=== PATIENT | male | born 1950 | race Caucasian/White ===

== ENCOUNTER 2018-09-27 10:37 | Emergency (ER) | payer OTHER ==
[2018-09-27 10:47] VITALS: BP 136/74
[2018-09-27] MEDS ORDERED: Ketorolac INJ* 60 MG/2 ML VIAL IM ONE (12:31)
--- NOTE | 2018-09-27 12:38 | UC ---
UC General HPI - HPI Summary HPI Summary: WOKE UP THIS MORNING WITH ACUTE LOWER BACK PAIN RADIATING DOWN THE BACKS OF HIS THIGHS AND EPIGASTRIC CRAMPING. HAS CHILLS BUT NO DOCUMENTED FEVER. DENIES NAUSEA. NO URINARY SYMPTOMS. FEELS OVERALL UNWELL. OTHER THAN A FEW SIPS OF WATER HAS NOT EATEN ANYTHING TODAY. - History of Current Complaint Chief Complaint: UCAbdominalPain Stated Complaint: STOMACH PAIN/CHILLS/LOSEOF FOCUS Time Seen by Provider: 09/27/18 12:26 Hx Obtained From: Patient Onset/Duration: Sudden Onset, Lasting Hours, Still Present Timing: Constant Onset Severity: Moderate Current Severity: Moderate Pain Intensity: 4 Associated Signs & Symptoms: Positive: Abdominal Pain, Back Pain, Fever. Negative: Chest Pain, Dysuria, Nausea - Allergy/Home Medications Allergies/Adverse Reactions: Allergies Allergy/AdvReac Type Severity Reaction Status Date / Time Cephalosporins Allergy Rash Verified 09/27/18 10:42 ADY WEED Allergy ALLERGY Uncoded 09/27/18 10:42 TEST - RAISED BUMPS Home Medications: Home Medications NK [No Home Medications Reported] 09/27/18 [History Confirmed 09/27/18] PMH/Surg Hx/FS Hx/Imm Hx GI/ History: Kidney Stones Other Cancer History: BASAL CELL - Surgical History Surgical History: Yes Surgery Procedure, Year, and Place: 1953 TONSILLECTOMY, [place]. 1955 LEFT INGUINAL [place]IA REPAIR, [place]. 1994 LITHOTRIPSY, X 2, ONE AT [facility],. 1999 LITHOTRIPSY, ONE AT [facility]. 2003 COLONSCOPY AND ENDOSCOPY, [facility] - Family History Known Family History: Positive: Non-Contributory - Social History Alcohol Use: Weekly Substance Use Type: None Smoking Status (MU): Never Smoked Tobacco Review of Systems All Other Systems Reviewed And Are Negative: Yes Constitutional: Positive: Fever, Chills ENT: Positive: Negative Respiratory: Positive: Negative Cardiovascular: Positive: Negative Gastrointestinal: Positive: Abdominal Pain. Negative: Nausea Genitourinary: Positive: Negative Musculoskeletal: Positive: Myalgia Physical Exam Triage Information Reviewed: Yes Appearance: Well-Nourished, Pain Distress - MODERATE - PACING AROUND ROOM Vital Signs: Initial Vital Signs Temp 99.6 F 09/27/18 10:43 Pulse 79 09/27/18 10:43 Resp 16 09/27/18 10:43 BP 136/74 09/27/18 10:43 Pulse Ox 99 09/27/18 10:43 Laboratory Tests 09/27/18 12:04 POC Urine Color Yellow POC Urine Clarity Clear POC Urine pH 6.5 POC Ur Specif [place] 1.020 POC Urine Protein Trace A POC Ur Glucose (UA) Negative POC Urine Ketones Negative POC Urine Blood 2+ A POC Urine Nitrite Negative POC Urine Bilirubin Negative POC Urine Urobilinogen 0.2 POC U Leukocyte Esteras Negative Vital Signs Reviewed: Yes Eyes: Positive: Conjunctiva Clear ENT: Positive: Hearing grossly normal Neck: Positive: Supple Respiratory: Positive: No respiratory distress, No accessory muscle use Cardiovascular: Positive: Pulses Normal Abdomen Description: Positive: Soft, Other: - MINIMALLY TENDER RIGHT SIDE OF ABDOMEN. NO REBOUD OR RIGIDITY.. Negative: CVA Tenderness (R), CVA Tenderness ( L), Distended, Guarding Bowel Sounds: Positive: Present Musculoskeletal: Positive: No Edema Neurological: Positive: Alert Psychological: Positive: Age Appropriate Behavior Skin: Negative: Rashes Diagnostics - Radiology CT ABD/PELVIS W/O CONTRAST Radiology Interpretation Completed By: Radiologist Summary of Radiographic Findings: Findings consistent with acute appendicitis. The appendix is located anterior. to the right kidney and just below the hepatorenal fossa. Course/Dx - Course Course Of Treatment: TO [facility] BY AMBULANCE. NPO - Diagnoses Provider Diagnosis: Acute appendicitis - Physician Notifications Discussed Patient Care With: Elfego Gray - TO [facility] BY AMBULANCE Time Discussed With Above Provider: 13:10 Instructed by Provider To: MD Will See In ED Discharge - Sign-Out/Discharge Documenting (check all that apply): Patient Departure All imaging exams completed and their final reports reviewed: Yes - Discharge Plan Condition: Stable Disposition: TRANS HIGHER LVL OF CARE FAC Referrals: Ana Samuel MD [Primary Care Provider] - - Billing Disposition and Condition Condition: STABLE Disposition: Trans Higher Lvl of Care Fac
[2018-09-27] MEDS ORDERED: NS 0.9% 1000 ML** 1,000 ML IV ONE (13:15)
== END 2018-09-27 13:36 | disposition short-term general hospital (02) ==
LOC: UCEAST 10:37
DX: K35.80 Unspecified acute appendicitis (principal); Z85.828 Personal history of other malignant neoplasm of skin
CPT/HCPCS: 74176; 81003; 96360; 96372; 99213; G0463; J1885

== ENCOUNTER 2018-09-27 13:47 | Observation (INO) | payer OTHER ==
[2018-09-27] MEDS ORDERED: NS 0.9% 1000 ML** 1,000 ML IV ONE ×2 (14:01→17:05)
[2018-09-27] MEDS ORDERED: Acetaminophen TAB* 325 MG PO ONE (14:27)
[2018-09-27] MEDS ORDERED: Ciprofloxacin 400MG IVPREMIX(* 400 MG/200 ML BAG IVPB ONE (14:27)
[2018-09-27] MEDS ORDERED: metroNIDAZOLE IV 500 MG/100ML* 500 MG/100 ML BAG IVPB ONE (14:29)
[2018-09-27] MEDS ORDERED: NS 0.9% 1000 ML** 2,000 ML IV ONE (14:29)
[2018-09-27 14:38] LABS: Hematocrit 46 % (42-52); Mean Corpuscular HGB Conc 35 g/dL (31-36); Mean Corpuscular Hemoglobin 33 pg (27-31); Mean Corpuscular Volume 95 fL (80-94); Mean Platelet Volume 8.4 fL (7.4-10.4); Platelet Count 148 10^3/uL (150-450); Red Blood Count 4.88 10^6 /uL (4.18-5.48); Red Cell Distribution Width 13 % (10-15); White Blood Count 17.8 10^3/uL (3.5-10.8)
--- NOTE | 2018-09-27 14:45 | ED ---
Abdominal Pain/Male - HPI Summary HPI Summary: This patient is a 68 year old M presenting to [facility] via EMS with a chief complaint of ABD pain and appendicitis since this morning. Patient experienced cramps in the ABD area, which caused him to wake up at 0530. After falling asleep, he woke up to even stronger cramps in the same area. Patient went to urgent care after, where he was diagnosed with appendicitis via CT. The patient rates the pain 0/10 in severity on triage. Symptoms aggravated by movement. Symptoms alleviated by rest. Patient reports chills, fever, pain in back, thighs , and pelvis area bilaterally, and normal appetite. Patient denies any erythema of eyes, sore throat, CP, SOB, cough, N/V, dysuria, hematuria, edema, rash, or dizziness. He does not take daily medications. Patient has hx of kidney stones and two episodes of hernia. - History of Current Complaint Chief Complaint: EDAbdPain Stated Complaint: APPENDICITIS FROM CC Time Seen by Provider: 09/27/18 14:00 Hx Obtained From: Patient Onset/Duration: Sudden Onset, Lasting Hours - 10 Severity Initially: Moderate Severity Currently: None Pain Intensity: 0 Pain Scale Used: 0-10 Numeric Character: Cramping Aggravating Factor(s): Movement Alleviating Factor(s): Other: - rest Associated Signs And Symptoms: Positive: Fever, Back Pain - pt notes some back pain from moving around too much, Other - positive - chills, pain in thighs and pelvis area bilaterally, and normal appetite. negative - erythema of eyes, sore throat, SOB, dysuria, hematuria, edema, rash, or dizziness.. Negative: Diaphoresis, Cough, Chest Pain, Dizzy, Blood in Stool, Urinary Symptoms, Decreased Appetite, Nausea, Vomiting, Diarrhea - Allergies/Home Medications Allergies/Adverse Reactions: Allergies Allergy/AdvReac Type Severity Reaction Status Date / Time Cephalosporins Allergy Rash Verified 09/27/18 10:42 ADY WEED Allergy ALLERGY Uncoded 09/27/18 10:42 TEST - RAISED BUMPS PMH/Surg Hx/FS Hx/Imm Hx Previously Healthy: No GI History: Reports: Hx Hiatal Hernia History: Reports: Hx Kidney Stones - HX OF, LITHOTRIPSY DONE, NO PROBLEMS NOW Sensory History: Reports: Hx Contacts or Glasses - READING GLASSES Denies: Hx Hearing Aid Opthamlomology History: Reports: Hx Contacts or Glasses - READING GLASSES Neurological History: Reports: Other Neuro Impairments/Disorders - CLUSTER HEADACHES, 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 1955 LEFT INGUINAL HERNIA REPAIR, [place]. 1994 LITHOTRIPSY, X 2, ONE AT [facility],. 1999 LITHOTRIPSY, ONE AT [facility]. 2003 COLONSCOPY AND ENDOSCOPY, [facility] [place] Hx Anesthesia Reactions: No Infectious Disease History: No Infectious Disease History: Reports: Traveled Outside the [place] in Last 30 Days - Family History Known Family History: Positive: Unknown - patient is adopted - Social History Alcohol Use: Weekly Hx Substance Use: No Substance Use Type: Reports: None Hx Tobacco Use: No Smoking Status (MU): Never Smoked Tobacco Do You Chew or Dip Tobacco: No Have You Chewed or Dipped Tobacco in the LAST YEAR: No Have You Smoked in the Last Year: No Review of Systems Constitutional: Other - positive - normal appetite Positive: Fever, Chills Negative: Erythema Negative: Sore Throat Negative: Chest Pain Negative: Shortness Of Breath, Cough Positive: Abdominal Pain. Negative: Vomiting, Nausea Negative: dysuria, hematuria Positive: Myalgia - back, thighs, and pelvis area bilaterally. Negative: Edema Negative: Rash Neurological: Other - negative - dizziness All Other Systems Reviewed And Are Negative: Yes Physical Exam - Summary Physical Exam Summary: Constitutional: Well-developed, Well-nourished, Alert. (-) Distressed Skin: Warm, Dry HENT: Normocephalic; Atraumatic Eyes: Conjunctiva normal Neck: Musculoskeletal ROM normal neck. (-) JVD, (-) Stridor, (-) Tracheal deviation Cardio: Rhythm regular, rate normal, Heart sounds normal; Intact distal pulses; The pedal pulses are 2+ and symmetric. Radial pulses are 2+ and symmetric. (-) Murmur Pulmonary/Chest wall: Effort normal. (-) Respiratory distress, (-) Wheezes, (-) Rales Abd: RLQ tenderness, Soft, (-) Distension, (-) Guarding, (-) Rebound Musculoskeletal: (-) Edema Lymph: (-) Cervical adenopathy Neuro: Alert, Oriented x3 Psych: Mood and affect Normal Triage Information Reviewed: Yes Vital Signs On Initial Exam: Initial Vitals Temp Pulse Resp BP Pulse Ox 100.7 F 102 20 103/71 92 09/27/18 14:01 09/27/18 14:01 09/27/18 14:01 09/27/18 14:01 09/27/18 14:01 Vital Signs Reviewed: Yes Diagnostics - Vital Signs Vital Signs Temp Pulse Resp BP Pulse Ox 09/27/18 14:03 101 92 09/27/18 14:01 100.7 F 102 20 103/71 93 - Laboratory Result Diagrams: 09/27/18 14:27 09/27/18 14:27 Lab Statement: Any lab studies that have been ordered have been reviewed, and results considered in the medical decision making process. Abdominal Pain Male Course/Dx - Course Course Of Treatment: This patient is a 68 year old M presenting to [facility] via EMS with a chief complaint of ABD pain and appendicitis since this morning. Patient experienced cramps in the ABD area, which caused him to wake up at 0530. After falling asleep, he woke up to even stronger cramps in the same area. Patient went to urgent care after, where he was diagnosed with appendicitis via CT. The patient rates the pain 0/10 in severity on triage. Symptoms aggravated by movement. Symptoms alleviated by rest. Patient reports chills, fever, pain in back, thighs, and pelvis area bilaterally, and normal appetite. Patient denies any erythema of eyes, sore throat, CP, SOB, cough, N/V , dysuria, hematuria, edema, rash, or dizziness. He does not take daily medications. Patient has hx of kidney stones and two episodes of hernia. Physical exam shows RLQ tenderness. Lab results show WBC 17.8, MCV 95, MCH 33 , Plt Count 148, Absolute neuts 17.4, Absolute lymphs 0.1, carbon dioxide 19, BUN 32, creatinine 1.45, BUN/creatinine ratio 22.1, glucose 111, lactic acid 3, C-reactive protein 16.41, total protein 6.1. During the ED course, the patient was given Tylenol, Cipro, Flagyl, and fluids. Final diagnosis is appendicitis. Patient's case was discussed with Dr. Frost. Patient was admitted to surgical services. Patient was agreeable. - Diagnoses Provider Diagnoses: Appendicitis - Provider Notifications Discussed Care Of Patient With: Nakul Frost Time Discussed With Above Provider: 15:25 Instructed by Provider To: Other - Dr. Gray relayed a message to OR nurse to Dr. Frost regarding findings of appendicitis with fever, elevated WBC, and elevated lactic acid. Patient was admitted to surgical services. Discharge - Sign-Out/Discharge Documenting (check all that apply): Patient Departure - admit All imaging exams completed and their final reports reviewed: No Studies Patient Received Moderate/Deep Sedation with Procedure: No - Discharge Plan Condition: Good Disposition: ADMITTED TO [facility] - Attestation Statements Document Initiated by Scribe: Yes Documenting Scribe: Luciano Rosario Provider For Whom Scribe is Documenting (Include Credential): Dr. Elfego Gray MD Scribe Attestation: I, Luciano Forman and Noah Rosario, scribed for Dr. Elfego Gray MD on 09/27/18 at 1922. Status of Scribe Document: Ready
[2018-09-27 15:11] LABS: Albumin 3.9 g/dL (3.2-5.2); Albumin/Globulin Ratio 1.8 (1-3); BUN/Creatinine Ratio 22.1 (8-20); C Reactive Protein 16.41 mg/L (<8.01); Calcium 8.7 mg/dL (8.6-10.3); EGFR African American 58.7 (>60); EGFR Non-African American 48.5 (>60); Globulin 2.2 g/dL (2-4); Potassium 3.8 mmol/L (3.5-5.0); Total Bilirubin 0.7 mg/dL (0.2-1.0); Total Protein 6.1 g/dL (6.4-8.9)
[2018-09-27 15:26] LABS: ABS Lymphocytes 0.1 10^3/ul (1.0-4.8); ABS Monocytes 0.2 10^3/ul (0-0.8); ABS Neutrophils 17.4 10^3/ul (1.5-7.7); Eosinophil % 0.1 %; Lymphocyte % 0.8 %
[2018-09-27] MEDS ORDERED: Heparin VIAL(*) 5000 UNITS/ML VIAL (FIVE THOUSAND) ONE (18:07)
--- NOTE | 2018-09-27 18:40 | HP ---
CC: Dr. Samuel * ADMISSION HISTORY AND PHYSICAL: DATE OF ADMISSION: 09/27/18 LOCATION: This patient was seen in the [facility] Emergency Department on 09/27/18. ATTENDING PHYSICIAN: Dr. Frost.* (DICTATED BY IRIS CARUSO NP) CHIEF COMPLAINT: Worsening abdominal pain. HISTORY OF PRESENT ILLNESS: The patient is a 68-year-old male who had the onset of upper abdominal pain early this morning associated with chills and myalgias. He went to the [facility] and had a CAT scan of the abdomen and pelvis, which was consistent with acute appendicitis and he was sent to the [facility] Emergency Department. He denies any nausea or vomiting. He denies dysuria. He did have a small bowel movement this morning. He has been n.p.o. for solids since last evening and has not had any liquid since 10 o'clock this morning. He returned on 09/24/18, from a week in [place] and 3 weeks in [place]. He does not think he was exposed to any infectious diseases or unusual foods. PAST MEDICAL HISTORY: Generally healthy, no acute or chronic conditions. He is followed for primary care by Dr. Samuel. PAST SURGICAL HISTORY: Laparoscopic bilateral inguinal hernia repair approximately 3 years ago here at [facility]; lithotripsy on 2 separate occasions with the most recent in 2003, tonsillectomy and left inguinal hernia repair in childhood. MEDICATIONS: None currently. ALLERGIES: CEPHALOSPORINS. FAMILY HISTORY: He is adopted and his history is unknown. 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 REVIEW OF SYSTEMS: Constitutional: He reports shaking chills at home this morning. He did not take his temperature at that time. General: No previous anesthesia complications. No history of deep vein thrombosis or pulmonary embolism. No history of blood transfusions. Respiratory: Occasional dry cough. No shortness of breath. Cardiovascular: No anginal chest pain or palpitations. He states that approximately 6 weeks ago he had an echocardiogram and stress test reportedly within normal limits. Endocrine: No diabetes or thyroid disease. Gastrointestinal: No nausea, vomiting, or diarrhea. No blood in the stool. Genitourinary: No dysuria or hematuria. Musculoskeletal: Myalgias in the thighs and right side of the back. Neurologic: No headache or blurred vision. Alert and cooperative. No history of seizures. PHYSICAL EXAMINATION GENERAL SURVEY: The patient is a 68-year-old male, well developed, well nourished, in no acute distress. VITAL SIGNS: Height 5 feet 9 inches, weight 200 pounds, body mass index 29.5. Blood pressure 103/70, heart rate 102, respiratory rate 20, temperature 100.7; tympanic, O2 saturation on room air 92%. HEENT: Benign. NECK: Supple. No cervical lymphadenopathy. LUNGS: Breath sounds bilaterally clear and equal. HEART: Regular rate and rhythm. No murmurs or rubs appreciated. BACK: Tenderness over the right flank with palpation. ABDOMEN: Obese, active bowel sounds. Tender with very deep palpation of right mid abdomen that extends onto the right flank. No obvious masses or organomegaly. No guarding. GENITALIA AND RECTAL EXAMS: Deferred. EXTREMITIES: Warm without edema or skin ulceration. NEUROLOGIC: Alert and oriented x3. SKIN: Warm, dry, intact. DIAGNOSTIC STUDIES/LAB DATA: CAT scan of the abdomen and pelvis. The findings were consistent with acute appendicitis; diverticulosis was noted without definite evidence of diverticulitis. White blood cell count 17.8, lactic acid 3.0, creatinine 1.45, BUN 32. The patient received intravenous antibiotics, Cipro and Flagyl, in the emergency department around 1430 today and also received 4 L of normal saline. IMPRESSION: Acute appendicitis. PLAN: Per Dr. Frost, to the OR for laparoscopic appendectomy. The CAT scan will be reviewed by Dr. Frost. The relevant risks, benefits, and typical postoperative recovery were discussed with the patient. His questions were answered and verbal consent was obtained. TIME SPENT: Sixty minutes with greater than 50% in [id number] history taking , physical examination, and coordination of care. IRIS CARUSO NP [id number]/[facility] #: [id number] [place]
[2018-09-27 18:44] LABS: Urine Appearance Cloudy; Urine Bacteria Absent (Absent); Urine Bilirubin Negative (Negative); Urine Blood Negative (Negative); Urine Color Yellow; Urine Glucose Negative (Negative); Urine Ketones Negative (Negative); Urine Nitrite Negative (Negative); Urine Protein 1+(30 mg/dL) (Negative); Urine Red Blood Cell Trace(0-2/hpf) (Absent); Urine Specific Gravity 1.016 (1.010-1.030); Urine Urobilinogen Negative (Negative); Urine White Blood Cell 1+(6-10/hpf) (Absent)
[2018-09-27] MEDS ORDERED: Propofol* 10 MG/ML 20 ML BTL ONE ×2 (19:31→21:32)
[2018-09-27] MEDS ORDERED: Lidocaine 2% PF * 5 ML VIAL ONE (19:31)
[2018-09-27] MEDS ORDERED: Dexamethasone IV* 4 MG/ML 1 ML (4 MG) ONE (19:31)
[2018-09-27] MEDS ORDERED: Midazolam* 1 MG/ML 5 ML VIAL (5 MG) ONE (19:31)
[2018-09-27] MEDS ORDERED: Cisatracurium* 2 MG/ML MDV 5 ML ONE (19:31)
[2018-09-27] MEDS ORDERED: Ketorolac INJ* 30 MG/ML 1 ML VIAL ONE (19:31)
[2018-09-27] MEDS ORDERED: fentaNYL* 50 MCG/ML 2 ML VIAL (100 MCG VIAL) ONE ×3 (19:31→22:34)
[2018-09-27] MEDS ORDERED: Ondansetron INJ* 2 MG/ML VIAL ONE (19:31)
[2018-09-27] MEDS ORDERED: Bupivacaine 0.25% W/EPI* 10 ML SDV ONE (20:45)
[2018-09-27] MEDS ORDERED: Phenylephrine 40 MCG/ML SYRINGE ONE (21:11)
[2018-09-27] MEDS ORDERED: VASOPRESSIN 20 UNITS/ML 1 ML VIAL ONE (21:14)
[2018-09-27] MEDS ORDERED: Labetalol IV* 5 MG/ML 20 ML VIAL ONE (22:24)
[2018-09-27] MEDS ORDERED: Ondansetron INJ* 2 MG/ML VIAL IV PRN ×2 (22:39→22:49)
[2018-09-27] MEDS ORDERED: fentaNYL* 50 MCG/ML 2 ML VIAL (100 MCG VIAL) IV PRN (22:39)
[2018-09-27] MEDS ORDERED: Naloxone* 0.4 MG/ML 1 ML VIAL IV PRN (22:39)
[2018-09-27] MEDS ORDERED: oxyCODONE/Acetamin 5/325 MG* TAB PO PRN (22:49)
[2018-09-27] MEDS ORDERED: HYDROmorphone INJ1* 1 MG/ML SYRINGE IV SLOW PU PRN (22:49)
[2018-09-27] MEDS ORDERED: Acetaminophen TAB* 325 MG PO PRN (22:49)
--- NOTE | 2018-09-27 22:56 | BRIEFOPN ---
Brief Operative Note - Surgery Procedures: PRE/POSTOP DX: ACUTE APPENDICITIS PROC: LAP APPENDECTOMY SURG: MECENAS ASSIST: NONE ANES: GET/TOAL EBL: 50ML IVF: 2.2 L LR SPEC: APPENDIX DRAIN: NONE COMPL: NONE COND: STABLE FINDINGS: RETROCOLIC APPENDIX.
--- NOTE | 2018-09-27 23:39 | OP ---
CC: Ana Samuel MD * DATE OF OPERATION: 09/27/18 - ROOM #334 DATE OF : 52 SURGEON: Nakul Frost MD AIRCRAFT [employer] FRAMER: None. ANESTHESIOLOGIST: Dr. Noel. ANESTHESIA: General endotracheal. PRE-OP DIAGNOSIS: Acute appendicitis. POST-OP DIAGNOSIS: Acute appendicitis. OPERATIVE PROCEDURE: Laparoscopic appendectomy. ESTIMATED BLOOD LOSS: 50 mL. IV FLUIDS: 2.2 L crystalloid. SPECIMEN: Appendix. DRAINS: None. COMPLICATIONS: None. COUNTS: Instrument, needle, and sponge count was correct. DESCRIPTION OF PROCEDURE: The patient was brought to the operating room and placed on the table supine. Sequential compression devices were placed in both lower extremities. General anesthesia was administered. The abdomen was prepped and draped in the usual sterile fashion. Time-out was performed. Local anesthetic was infiltrated into the skin and soft tissue prior to making each incision. Entry to the abdomen was through an infraumbilical incision utilizing the prior scar. The peritoneal cavity was accessed and a 12-mm trocar placed and carbon dioxide insufflated to a pressure of 15 mmHg. Under direct visualization, a 5-mm trocar was placed in the lower midline in the abdomen and then inspection revealed that the cecum was about the mid right abdomen and the appendix was in a retrocolic direction making it difficult to visualize. Therefore, the second 5-mm trocar was placed in the upper midline and ultimately a third 5-mm trocar was placed in the right upper quadrant before the completion of the case. With the utilization of 30-degree laparoscope, the ascending colon was grasped with atraumatic graspers and retracted towards the midline. The base of the appendix was identified in a retrocolic position and this was followed towards the tip of the appendix and this extended the dissection further cephalad up to the hepatic flexure and ultimately the end of the appendix was found in the right upper quadrant with acute inflammatory changes. First, the base of the appendix was elevated and a window created through the mesentery there. Then the appendix was divided from the cecum, stapled, and the appendix was grasped and elevated as the dissection proceeded further into the area of the retroperitoneum and this brought the dissection anterior to the right kidney and up to the level of the gallbladder. The mesentery of the appendix was divided with 2 firings of the EndoGIA stapler with thibodeaux cartridge and ultimately this was then removed using endoscopic retrieval bag. This was submitted to Pathology. Upon gross inspection of the specimen, however, there was some concern that a portion of the appendix may have been left behind, and therefore additional dissection was performed to further rotate the colon anteriorly and then the fatty tissue that was adjacent to the colon laterally was further dissected in order to assure that there was no portion of appendix remaining. Additional portion of fat was removed. Hemostasis was assured. Lavage was performed until clear. The ports were then removed under direct visualization and carbon dioxide was released. The umbilicus was closed with 0 Vicryl in [id number] fashion to approximate the fascia. Skin incisions were closed with 4-0 Monocryl in subcuticular fashion and Steri-Strips applied. The patient tolerated the procedure well, was extubated, and transferred to Recovery in stable condition. [id number]/[facility] #: [id number] [facility]ITALXavier
[2018-09-28] MEDS: Lactated Ringers 1000 ML Bag* 1,000 ML IV SCH ×2 (00:35→10:35)
[2018-09-28 05:22] LABS: Hematocrit 42 % (42-52); Hemoglobin 14.4 g/dL (14.0-18.0); Mean Corpuscular HGB Conc 34 g/dL (31-36); Mean Corpuscular Hemoglobin 33 pg (27-31); Mean Corpuscular Volume 97 fL (80-94); Mean Platelet Volume 8.5 fL (7.4-10.4); Platelet Count 123 10^3/uL (150-450); Red Blood Count 4.37 10^6 /uL (4.18-5.48); Red Cell Distribution Width 13 % (10-15)
[2018-09-28 05:27] LABS: ABS Basophils 0.1 10^3/ul (0-0.2); ABS Lymphocytes 0.2 10^3/ul (1.0-4.8); ABS Monocytes 0.8 10^3/ul (0-0.8); ABS Neutrophils 22.9 10^3/ul (1.5-7.7); Lymphocyte % 0.9 %
[2018-09-28] MEDS: Heparin VIAL(*) 5000 UNITS/ML VIAL (FIVE THOUSAND) SUBCUT SCH ×3 (06:20→22:10)
--- NOTE | 2018-09-28 08:41 | PN ---
Progress Note - Progress Note Date of Service: 09/28/18 SOAP: Subjective: Not much pain. No flatus and little appetite. Voiding well. Feels distended. Discussed surgical findings. Objective: Vital Signs Temp 98.5 F 09/28/18 06:23 Pulse 79 09/28/18 06:23 Resp 18 09/28/18 07:58 BP 113/60 09/28/18 06:23 Pulse Ox 93 09/28/18 06:23 Gen: sitting up in bed; NAD ABd: distended; incisions dry and intact. Soft and mildly tender. Intake & Output 09/27/18 09/28/18 09/28/18 18:59 06:59 18:59 Intake Total 3400 1480 Output Total 580 Balance 3400 900 Weight 200 lb 200 lb Intake: IV Fluids 3400 1000 LR 1000 Oral 480 Output: Urine 580 Other: Estimated Void Large # Voids 1 Laboratory Results - last 24 hr 09/27/18 09/27/18 09/27/18 14:27 14:27 14:27 WBC 17.8 H RBC 4.88 Hgb 16.0 Hct 46 MCV 95 H MCH 33 H MCHC 35 RDW 13 Plt Count 148 L MPV 8.4 Neut % (Auto) 97.9 Lymph % (Auto) 0.8 [place] % (Auto) 1.1 Eos % (Auto) 0.1 Baso % (Auto) 0.1 Absolute Neuts (auto) 17.4 H Absolute Lymphs (auto) 0.1 L Absolute Monos (auto) 0.2 Absolute Eos (auto) 0.0 Absolute Basos (auto) 0.0 Absolute Nucleated RBC 0.0 Immature Gran % 8.0 Neutrophils % 89.0 Band Neutrophils % 8.0 Lymphocytes % 1.0 Monocytes % 2.0 Nucleated RBC % 0.0 Normal RBC Morphology Normal Sodium 139 Potassium 3.8 Chloride 109 Carbon Dioxide 19 L Anion Gap 11 BUN 32 H Creatinine 1.45 H Est GFR ( Amer) 58.7 Est GFR (Non-Af Amer) 48.5 BUN/Creatinine Ratio 22.1 H Glucose 111 H Lactic Acid 3.0 H* Calcium 8.7 Total Bilirubin 0.70 AST 20 ALT 16 Alkaline Phosphatase 67 C-Reactive Protein 16.41 H Total Protein 6.1 L Albumin 3.9 Globulin 2.2 Albumin/Globulin Ratio 1.8 Lipase 29 Urine Color Urine Appearance Urine pH Ur Specific [place] Urine Protein Urine Ketones Urine Blood Urine Nitrate Urine Bilirubin Urine Urobilinogen Ur Leukocyte Esterase Urine WBC (Auto) Urine RBC (Auto) Urine Bacteria Urine Glucose 09/27/18 09/28/18 18:15 04:51 WBC 24.0 H RBC 4.37 Hgb 14.4 Hct 42 MCV 97 H MCH 33 H MCHC 34 RDW 13 Plt Count 123 L MPV 8.5 Neut % (Auto) 95.2 Lymph % (Auto) 0.9 [place] % (Auto) 3.5 Eos % (Auto) 0.0 Baso % (Auto) 0.4 Absolute Neuts (auto) 22.9 H Absolute Lymphs (auto) 0.2 L Absolute Monos (auto) 0.8 Absolute Eos (auto) 0.0 Absolute Basos (auto) 0.1 Absolute Nucleated RBC 0.0 Immature Gran % Neutrophils % Band Neutrophils % Lymphocytes % Monocytes % Nucleated RBC % 0.0 Normal RBC Morphology Sodium Potassium Chloride Carbon Dioxide Anion Gap BUN Creatinine Est GFR ( Amer) Est GFR (Non-Af Amer) BUN/Creatinine Ratio Glucose Lactic Acid Calcium Total Bilirubin AST ALT Alkaline Phosphatase C-Reactive Protein Total Protein Albumin Globulin Albumin/Globulin Ratio Lipase Urine Color Yellow Urine Appearance Cloudy Urine pH 6.0 Ur Specific [place] 1.016 Urine Protein 1+(30 mg/dl) A Urine Ketones Negative Urine Blood Negative Urine Nitrate Negative Urine Bilirubin Negative Urine Urobilinogen Negative Ur Leukocyte Esterase Negative Urine WBC (Auto) 1+(6-10/hpf) A Urine RBC (Auto) Trace(0-2/hpf) Urine Bacteria Absent Urine Glucose Negative Assessment: POD#1 s/p lap appy for retrocolic appendicitis. Clinically better but WBCs are up. Plan: Clears. Repeat lactic acid. Likely home later. D/w pt.
[2018-09-28] MEDS: D5W 1/2 NS KCl 20 Meq 1000 ML* 1,000 ML IV SCH (12:58)
[2018-09-28] MEDS ORDERED: Levofloxacin 750 MG IVPREMIX(* 750 MG/150 ML BAG IVPB SCH (14:00)
[2018-09-28 14:24] LABS: BUN/Creatinine Ratio 25.9 (8-20); EGFR African American 82.5 (>60); EGFR Non-African American 68.2 (>60); Potassium 4.1 mmol/L (3.5-5.0)
[2018-09-28] MEDS: metroNIDAZOLE IV 500 MG/100ML* 500 MG/100 ML BAG IVPB SCH ×2 (15:40→22:09)
[2018-09-29] MEDS: D5W 1/2 NS KCl 20 Meq 1000 ML* 1,000 ML IV SCH (01:28)
[2018-09-29 05:10] LABS: ABS Lymphocytes 0.4 10^3/ul (1.0-4.8); ABS Monocytes 0.9 10^3/ul (0-0.8); Eosinophil % 0.1 %; Hematocrit 38 % (42-52); Hemoglobin 13.2 g/dL (14.0-18.0); Lymphocyte % 2.3 %; Mean Corpuscular HGB Conc 35 g/dL (31-36); Mean Corpuscular Hemoglobin 33 pg (27-31); Mean Corpuscular Volume 95 fL (80-94); Mean Platelet Volume 8.3 fL (7.4-10.4); Platelet Count 109 10^3/uL (150-450); Red Blood Count 4.01 10^6 /uL (4.18-5.48); Red Cell Distribution Width 13 % (10-15); White Blood Count 15.3 10^3/uL (3.5-10.8)
[2018-09-29 05:27] LABS: BUN/Creatinine Ratio 21.2 (8-20); Calcium 7.5 mg/dL (8.6-10.3); EGFR African American 74.5 (>60); EGFR Non-African American 61.6 (>60); Potassium 3.8 mmol/L (3.5-5.0)
[2018-09-29] MEDS: Heparin VIAL(*) 5000 UNITS/ML VIAL (FIVE THOUSAND) SUBCUT SCH (05:41)
[2018-09-29] MEDS: metroNIDAZOLE IV 500 MG/100ML* 500 MG/100 ML BAG IVPB SCH (05:41)
[2018-09-29 08:05] VITALS: BP 135/64
--- NOTE | 2018-09-29 16:16 | DS ---
CC: Dr. Samuel * DISCHARGE SUMMARY: DATE OF ADMISSION: 09/27/18 DATE OF DISCHARGE: 09/29/18 ATTENDING SURGEON: Nakul Frost MD * (DICTATED BY IRIS CARUSO NP) HOSPITAL COURSE: Please refer to admission history and physical for admission details. The patient was taken to the operating room on 09/27/18, and underwent laparoscopic appendectomy by Dr. Frost. His white blood cell count initially was 17.8 preoperatively; on postoperative day 1, his white blood cell count was 24,000; and today on postop day 2 had fallen to 15.3. He had an uneventful postoperative course, he required minimal pain medication and was able to tolerate a regular diet. He was ambulating in the halls and using his Inspiron. He was seen earlier this morning by Dr. Frost and myself and he met criteria for discharge. PHYSICAL EXAMINATION: General: Well appearing, in no acute distress. Vital Signs: Stable, he is afebrile, O2 saturation 98% on room air. Lungs: Breath sounds bilaterally clear and equal. Heart: Regular rate and rhythm. No murmurs or rubs appreciated. Abdomen: Active bowel sounds. Softly distended. Laparoscopic port sites are intact with Steri-Strips, which are clean and dry and there is no surrounding erythema. The abdomen is soft with appropriate incisional tenderness. Skin: Warm, dry, intact. Extremities: Nontender calves. IMPRESSION: Status post laparoscopic appendectomy, doing extremely well. CONDITION: Stable for discharge. PLAN: Discharge home today; instructions were reviewed with the patient; he will call our office to set up a followup visit within 1 next week. He prefers to use [id number] ibuprofen for any discomfort and refused an opioid prescription. All of his questions were answered. TIME SPENT: Thirty minutes with greater than 50% in [id number], physical examination, and patient education. IRIS CARUSO NP [id number]/[facility] #: [id number] [place]
== END 2018-09-29 11:16 | disposition home or self-care (01) ==
LOC: ED 13:47 → OR 16:56 → SSU 22:49
PROVIDERS: ADMIT Surgery; ATTEND Surgery
DX: K35.80 Unspecified acute appendicitis (principal); M54.9 Dorsalgia, unspecified; Z87.442 Personal history of urinary calculi; Z87.19 Personal history of other diseases of the digestive system
CPT/HCPCS: 36415; 80048; 80053; 81003; 81015; 83605; 83690; 85025; 86140; 87086; 88304; 96361; 96365; 96367; 96372; 99283; A9270-GY; C1776; G0378; J0744; J1100; J1644; J1885; J2250; J2405; J2704; J3010; J3490

== ENCOUNTER 2019-04-26 01:50 | Emergency (ER) | payer OTHER ==
[2019-04-26 01:54] VITALS: BP 155/81
[2019-04-26] MEDS ORDERED: Bupivacaine 0.5% W/EPI SDV* 10 ML VIAL INJ ONE (02:07)
--- NOTE | 2019-04-26 02:24 | ED ---
Laceration/Wound HPI - HPI Summary HPI Summary: 68 year old M presenting to [facility] complains of laceration on his left middle finger with active bleeding after cutting himself with a bread knife minutes prior to arrival. The patient tried to stop the bleeding at home but was unable to. The patient rates the pain 1/10 in severity. Symptoms aggravated by nothing. Symptoms alleviated by applying pressure. Medications reviewed. Not on anticoagulants. Allergies noted. - History of Current Complaint Stated Complaint: FINGER LAC PER PT Time Seen by Provider: 04/26/19 02:02 Hx Obtained From: Patient Onset/Duration: Lasting Hours, Still Present Aggravating: Nothing Alleviating: Other - applying pressure Timing: Constant Current Severity: Mild Pain Intensity: 1 Pain Scale Used: 0-10 Numeric - Additional Pertinent History Primary Care Physician: MOSHE - Allergy/Home Medications Allergies/Adverse Reactions: Allergies Allergy/AdvReac Type Severity Reaction Status Date / Time Cephalosporins Allergy Rash Verified 09/27/18 19:23 ADY WEED Allergy ALLERGY Uncoded 09/27/18 19:23 TEST - RAISED BUMPS PMH/Surg Hx/FS Hx/Imm Hx GI History: Reports: Hx Hiatal Hernia, Other GI Disorders - inguinal History: Reports: Hx Kidney Stones Sensory History: Reports: Hx Contacts or Glasses Denies: Hx Deafness, Hx Hearing Aid Opthamlomology History: Reports: Hx Contacts or Glasses Neurological History: Reports: Other Neuro Impairments/Disorders - CLUSTER HEADACHES, LAST ONE SUMMER OF 2014 - Cancer History Cancer Type, Location and Year: basal cell - Surgical History Surgery Procedure, Year, and Place: 1953 TONSILLECTOMY, [place]. 1955 LEFT INGUINAL HERNIA REPAIR, [place]. 1994 LITHOTRIPSY, X 2, ONE AT [facility],. 1999 LITHOTRIPSY, ONE AT [facility] [place]. 2003 COL[place]SCOPY AND [place]OSCOPY, [facility] [place]x Anesthesia Reactions: No Infectious Disease History: No Infectious Disease History: Denies: Traveled Outside the [place] in Last 30 Days - Family History Known Family History: Positive: Unknown - patient is adopted - Social History Alcohol Use: Occasionally Hx Substance Use: No Substance Use Type: Reports: None Hx Tobacco Use: No Smoking Status (MU): Never Smoked Tobacco Have You Smoked in the Last Year: No Review of Systems Negative: Fever Positive: Other - laceration on his left middle finger with active bleeding All Other Systems Reviewed And Are Negative: Yes Physical Exam - Summary Physical Exam Summary: Appearance: Well-appearing, Well-nourished, lying in bed comfortable Skin: Warm, dry, no obvious rash; There is a flap laceration on the pad of distal phalanx of left middle finger with persistent bleeding Eyes: sclera anicteric, no conjunctival pallor ENT: mucous membranes moist Neck: deferred Respiratory: No signs of respiratory distress Cardiovascular: Appears well perfused, pulses are nml Abdomen: deferred Musculoskeletal: Moving all 4 extremities without obvious discomfort Neurological: Awake and alert, mentation is normal, speech is fluent and appropriate Psychiatric: affect is normal, does not appear anxious or depressed Triage Information Reviewed: Yes Vital Signs On Initial Exam: Initial Vitals Temp Pulse Resp BP Pulse Ox 98 F 72 18 155/81 98 04/26/19 01:52 04/26/19 01:52 04/26/19 01:52 04/26/19 01:52 04/26/19 01:52 Vital Signs Reviewed: Yes Procedures - Sedation Patient Received Moderate/Deep Sedation with Procedure: No - Laceration/Wound Repair 1 Location: upper extremity - left middle finger Anesthesia: .5%, Marcaine - bupivacaine with epi, Epi Betadine Prep?: Yes Laceration/Wound Explored: clean Suture Type: Nylon - 5-O Number of Sutures: 3 Layer Closure?: No Diagnostics - Vital Signs Vital Signs Temp Pulse Resp BP Pulse Ox 04/26/19 01:52 98 F 72 18 155/81 98 - Laboratory Lab Statement: Any lab studies that have been ordered have been reviewed, and results considered in the medical decision making process. Laceration Repair Course/Dx - Course Course Of Treatment: 68 y/o M presents with laceration on his left middle finger with active bleeding after cutting himself with a bread knife minutes prior to arrival. The patient tried to stop the bleeding at home but was unable to. Not on anticoagulants. Upon exam, there is a flap laceration on the pad of distal phalanx of left middle finger with persistent bleeding. Laceration repaired with sutures. See procedure note. Patient will be discharged home with instructions to have his stitches removed in 5-7 days. Patient was instructed to return to Emergency Department for new or worsening symptoms. Patient understands and is agreeable to this plan. - Clinical Impression Provider Diagnoses: Laceration of left middle finger Discharge ED - Sign-Out/Discharge Documenting (check all that apply): Patient Departure - Discharge Plan Condition: Good Disposition: HOME Patient Education Materials: Care For Your Stitches (ED) Referrals: Ana Samuel MD [Primary Care Provider] - Additional Instructions: Stitches need to be removed in 5-7 days. - Billing Disposition and Condition Condition: GOOD Disposition: Home - Attestation Statements Document Initiated by Scribe: Yes Documenting Scribe: Susan De Leon Provider For Whom Trevor is Documenting (Include Credential): Derick Jain MD Scribe Attestation: Susan Sahni, scribed for Derick Jain MD on 04/26/19 at 0551. Scribe Documentation Reviewed: Yes Provider Attestation: The documentation as recorded by the Susan clemente accurately reflects the service I personally performed and the decisions made by me, Derick Jain MD Status of Scribe Document: Viewed
== END 2019-04-26 02:49 | disposition home or self-care (01) ==
LOC: ED 01:50
DX: S61.213A Laceration without foreign body of left middle finger without damage to nail, initial encounter (principal); W26.0XXA Contact with knife, initial encounter; Y92.009 Unspecified place in unspecified non-institutional (private) residence as the place of occurrence of the external cause; Z87.442 Personal history of urinary calculi; Z88.1 Allergy status to other antibiotic agents
CPT/HCPCS: 12001; 99281

== ENCOUNTER 2019-05-04 16:02 | Emergency (ER) | payer OTHER ==
[2019-05-04 16:31] VITALS: BP 129/75
--- NOTE | 2019-05-04 17:34 | UC ---
Laceration HPI - HPI Summary HPI Summary: 69 yo male presents for suture removal. Had 3 sutures placed to LEFT middle finger on 04/26. Has had no pain, drainage, redness, or fever. - History Of Current Complaint Chief Complaint: DOMINICKkin Stated Complaint: SUTURE REMOVAL Time Seen by Provider: 05/04/19 17:32 Hx Obtained From: Patient Laceration Location: Finger Pain Intensity: 0 - Allergies/Home Medications Allergies/Adverse Reactions: Allergies Allergy/AdvReac Type Severity Reaction Status Date / Time Cephalosporins Allergy Rash Verified 05/04/19 16:31 ADY WEED Allergy ALLERGY Uncoded 05/04/19 16:31 TEST - RAISED BUMPS Home Medications: Home Medications NK [No Home Medications Reported] 05/04/19 [History Confirmed 05/04/19] PMH/Surg Hx/FS Hx/Imm Hx - Additional Past Medical History Additional PMH: None - Surgical History Surgical History: Yes Surgery Procedure, Year, and Place: 1953 TONSILLECTOMY, [place]. 1955 LEFT INGUINAL [place]ERNIA REPAIR, [place]. 1994 LITHOTRIPSY, X 2, ONE AT [facility],. [place] [facility] [facility] - Family History Known Family History: Positive: Unknown - patient is adopted, Non-Contributory - Social History Lives: With Family Alcohol Use: Weekly Substance Use Type: None Smoking Status (MU): Never Smoked Tobacco Have You Smoked in the Last Year: No - Immunization History Most Recent Influenza Vaccination: Fall 2016 Most Recent Pneumonia Vaccination: 06/16/2018 Review of Systems All Other Systems Reviewed And Are Negative: No Constitutional: Positive: Negative Skin: Positive: Other - Sutures left middle finger Respiratory: Positive: Negative Cardiovascular: Positive: Negative Neurological/Mental Status: Positive: Negative Psychological: Positive: Negative Physical Exam - Summary Physical Exam Summary: GENERAL: NAD. WDWN. No pain distress. SKIN: LEFT middle finger: [address] No drainage, erythema, or tenderness. NECK: Supple. Nontender. No lymphadenopathy. CHEST: No accessory muscle use. Breathing comfortably and in no distress. CV: Pulses intact. Cap refill <2seconds NEURO: Alert. PSYCH: Age appropriate behavior. Triage Information Reviewed: Yes Vital Signs: Initial Vital Signs Temp 99.1 F 05/04/19 16:28 Pulse 72 05/04/19 16:28 Resp 16 05/04/19 16:28 BP 129/75 05/04/19 16:28 Pulse Ox 96 05/04/19 16:28 Vital Signs Reviewed: Yes Laceration Course/Dx - Course/Dx Course Of Treatment: 3 sutures removed without difficulty - Diagnosis Provider Diagnosis: Visit for suture removal Discharge ED - Sign-Out/Discharge Documenting (check all that apply): Patient Departure All imaging exams completed and their final reports reviewed: No Studies - Discharge Plan Condition: Stable Disposition: HOME Patient Education Materials: Stitches Removal (ED) Referrals: Ana Samuel MD [Primary Care Provider] - - Billing Disposition and Condition Condition: STABLE Disposition: Home - Attestation Statements Provider Attestation: This patient was not seen by me. I was available for consult. Chart reviewed. NEVA
== END 2019-05-04 17:45 | disposition home or self-care (01) ==
LOC: UCEAST 16:02
DX: S69.92XD Unspecified injury of left wrist, hand and finger(s), subsequent encounter (principal); Z88.1 Allergy status to other antibiotic agents; Z91.09 Other allergy status, other than to drugs and biological substances; X58.XXXD Exposure to other specified factors, subsequent encounter
CPT/HCPCS: 99211; G0463

== ENCOUNTER 2019-05-09 09:33 | Emergency (ER) | payer OTHER ==
[2019-05-09 09:40] VITALS: BP 127/81
--- NOTE | 2019-05-09 09:55 | UC ---
Ear Complaint HPI - HPI Summary HPI Summary: 69 yo male presents with RIGHT ear pain. He tells me that over the last 2-3 days he has noticed right ear pain with muffled hearing. He does wear hearing aids, but states no change with these and no FB within ear. He is feeling well otherwise and denies fever, chills, sinus symptoms, sore throat, cough. - History of Current Complaint Chief Complaint: UCEar Stated Complaint: EAR PAIN Time Seen by Provider: 05/09/19 09:53 Hx Obtained From: Patient Onset/Duration: Gradual Onset Severity Initially: Mild Severity Currently: Mild Pain Intensity: 3 Pain Scale Used: 0-10 Numeric - Allergies/Home Medications Allergies/Adverse Reactions: Allergies Allergy/AdvReac Type Severity Reaction Status Date / Time Cephalosporins Allergy Rash Verified 05/09/19 09:40 ADY WEED Allergy ALLERGY Uncoded 05/09/19 09:40 TEST - RAISED BUMPS PMH/Surg Hx/FS Hx/Imm Hx - Additional Past Medical History Additional PMH: None - Surgical History Surgical History: Yes Surgery Procedure, Year, and Place: 1953 TONSILLECTOMY, [place]. 1955 LEFT INGUINAL [place]IA REPAIR, [place]. 1994 LITHOTRIPSY, X 2, ONE AT [facility],. 1999 LITHOTRIPSY, [place] AT [facility] [place]. 2003 [place]SCOPY AND [place]OSCOPY, [facility] [place]. 2019 app[place] - Family History Known Family History: Positive: Unknown - patient is adopted, Non-Contributory - Social History Lives: With Family Alcohol Use: Weekly Substance Use Type: None Smoking Status (MU): Never Smoked Tobacco Have You Smoked in the Last Year: No - Immunization History Most Recent Influenza Vaccination: Fall 2016 Most Recent Pneumonia Vaccination: 06/16/2018 Review of Systems All Other Systems Reviewed And Are Negative: No Constitutional: Positive: Negative Skin: Positive: Negative Eyes: Positive: Negative ENT: Positive: Ear Ache Respiratory: Positive: Negative Cardiovascular: Positive: Negative Gastrointestinal: Positive: Negative Neurological/Mental Status: Positive: Negative Psychological: Positive: Negative Physical Exam - Summary Physical Exam Summary: GENERAL: NAD. WDWN. No pain distress. SKIN: No rashes, sores, lesions, or open wounds. HEENT: Head: AT/NC Eyes: EOM intact. Conjunctiva clear without inflammation or discharge. Ears: Hearing grossly normal. RIGHT EAR: Moderate brown/black cerumen within. S/p cerumen disimpaction; TMs intact, no bulging, erythema, or edema. NECK: Supple. Nontender. No lymphadenopathy. NEURO: Alert. PSYCH: Age appropriate behavior. Triage Information Reviewed: Yes Vital Signs: Initial Vital Signs Temp 98.1 F 05/09/19 09:35 Pulse 64 05/09/19 09:35 Resp 18 05/09/19 09:35 BP 127/81 05/09/19 09:35 Pulse Ox 98 05/09/19 09:35 NK [No Home Medications Reported] 05/04/19 [History Confirmed 05/09/19] Vital Signs Reviewed: Yes Ear Complaint Course/Dx - Course Course Of Treatment: Ceurmen impaction with successful disimpaction with saline irrigation by nursing. Pt tolerated well and felt much better. TM intact and cerumen removed s/p - Differential Dx/Diagnosis Provider Diagnosis: Cerumen impaction Discharge ED - Sign-Out/Discharge Documenting (check all that apply): Patient Departure All imaging exams completed and their final reports reviewed: No Studies - Discharge Plan Condition: Stable Disposition: HOME Patient Education Materials: Cerumen Impaction (ED) Referrals: Ana Samuel MD [Primary Care Provider] - Additional Instructions: If you develop a fever, shortness of breath, chest pain, new or worsening symptoms - please call your PCP or go to the ED immediately. May try using DEBROX ear wax drops (over the counter) to prevent ear wax build up - Billing Disposition and Condition Condition: STABLE Disposition: Home
== END 2019-05-09 10:15 | disposition home or self-care (01) ==
LOC: UCEAST 09:33
DX: H61.21 Impacted cerumen, right ear (principal); Z88.1 Allergy status to other antibiotic agents; Z91.048 Other nonmedicinal substance allergy status
CPT/HCPCS: 99212; G0463